=== PATIENT | female | born 1980 | race African-American/Black ===

== ENCOUNTER 2017-06-06 20:36 | Emergency (ER) | payer OTHER ==
[~2017-06-06] VITALS: Ht 162.6 cm; Wt 77.1 kg
[~2017-06-06 20:36] MED LIST: AMOXICILLIN 50500 MG PO; BACTRIM DS TAB1 EACH PO; PHENERGAN 25 MG25 M1 PO; ZOFRAN ODT4 MG PO
[2017-06-06 20:58] LABS: URINE BILIRUBIN NEGATIVE (Negative); URINE BLOOD NEGATIVE (Negative); URINE CLARITY CLEAR; URINE COLOR YELLOW; URINE GLUCOSE-RANDOM* NEGATIVE (Negative); URINE KETONES NEGATIVE (Negative); URINE LEUKOCYTES-REFLEX NEGATIVE (Negative); URINE NITRITE-REFLEX NEGATIVE (Negative); URINE PROTEIN (DIPSTICK) NEGATIVE (Negative); URINE UROBILINOGEN 0.2 E.U./dl (0.2-1.0)
[2017-06-06 23:15] LABS: ABSOLUTE NEUTROPHILS 2.4 thou/uL (1.4-8.2); BASOPHILS 1.3 % (0.0-2.0); EOSINOPHILS 2.6 % (0.0-3.0); HEMOGLOBIN 11.6 gm/dL (12.0-15.0); LYMPHOCYTES 52.2 % (24.0-44.0); MCH 30.2 pg (26.0-34.0); MCHC 33.2 g/dL (28.0-37.0); MONOCYTES 9.3 % (1.0-8.0); PLATELET COUNT 226 thou/uL (150-400); POLYS 34.6 % (36.0-66.0); RBC 3.85 mil/uL (4.20-5.00); RDW 14.1 % (10.5-14.5); WBC 6.8 thou/uL (4.0-11.0)
[2017-06-06 23:18] LABS: CALCIUM 9.2 mg/dL (8.5-10.1); CREATININE 0.8 mg/dL (0.6-1.0); POTASSIUM 3.4 mmol/L (3.5-5.1)
[2017-06-06] MEDS ORDERED: MOBIC15 MG PO (23:23)
[2017-09-27] MEDS ORDERED: IBUPROFEN 600600 M1 PO ×2 (20:17→20:59)
[2017-09-27] MEDS ORDERED: NORCO 5-325 TA1 EACH PO ×2 (20:17→20:59)
== END 2017-06-06 23:39 | disposition home or self-care (01) ==
LOC: ER 20:36
PROVIDERS: Physician Assistant
DX: R10.2 Pelvic and perineal pain (principal); F17.210 Nicotine dependence, cigarettes, uncomplicated; Z98.890 Other specified postprocedural states

== ENCOUNTER 2018-01-11 13:06 | Emergency (ER) | payer OTHER ==
[~2018-01-11] VITALS: Ht 162.6 cm; Wt 74.8 kg
[~2018-01-11 13:06] MED LIST changes: +IBUPROFEN 600600 M1 PO; +MOBIC15 MG PO; +NORCO 5-325 TA1 EACH PO
[2018-01-11 18:27] VITALS: BP 129/84
== END 2018-01-11 16:30 | disposition home or self-care (01) ==
LOC: ER 13:06
DX: K59.00 Constipation, unspecified (principal); F17.210 Nicotine dependence, cigarettes, uncomplicated; Z90.49 Acquired absence of other specified parts of digestive tract

== ENCOUNTER 2018-11-19 22:04 | Emergency (ER) | payer OTHER ==
[~2018-11-19] VITALS: Ht 162.6 cm; Wt 77.1 kg
[2018-11-20] MEDS ORDERED: BACTRIM DS TAB1 EACH PO (01:21)
[2018-11-20] MEDS ORDERED: NORCO 5-325 TA1 EAC1 PO (01:21)
[2018-11-20 01:45] VITALS: BP 153/91
== END 2018-11-20 01:46 | disposition home or self-care (01) ==
LOC: ER 22:04
DX: L02.411 Cutaneous abscess of right axilla (principal); F17.210 Nicotine dependence, cigarettes, uncomplicated; Z90.49 Acquired absence of other specified parts of digestive tract

== ENCOUNTER 2018-11-24 11:00 | Emergency (ER) | payer OTHER ==
[~2018-11-24] VITALS: Ht 162.6 cm; Wt 77.1 kg
[~2018-11-24 11:00] MED LIST changes: +NORCO 5-325 TA1 EAC1 PO
[2018-11-24 16:08] LABS: HEMATOCRIT 38.3 % (37.0-47.0); HEMOGLOBIN 12.8 gm/dL (12.0-15.0); MCH 30.4 pg (26.0-34.0); MCHC 33.4 g/dL (28.0-37.0); MCV 90.8 fL (80.0-100.0); PLATELET COUNT 217 thou/uL (150-400); RBC 4.21 mil/uL (4.20-5.00); RDW 13.7 % (10.5-14.5); WBC 3.4 thou/uL (4.0-11.0)
[2018-11-24 16:11] LABS: URINE BLOOD NEGATIVE (Negative); URINE CLARITY CLEAR; URINE COLOR YELLOW; URINE GLUCOSE-RANDOM* NEGATIVE (Negative); URINE KETONES TRACE (Negative); URINE LEUKOCYTES-REFLEX NEGATIVE (Negative); URINE NITRITE-REFLEX NEGATIVE (Negative); URINE PROTEIN (DIPSTICK) TRACE (Negative); URINE SPECIFIC GRAVITY >= 1.030 (1.005-1.035)
[2018-11-24 16:14] LABS: ICTOTEST (BILI CONFIRMATORY) Negative (Negative); URINE BILIRUBIN NEGATIVE (Negative)
[2018-11-24 16:16] LABS: ANION GAP 7 mmol/L (7-16); BUN 5 mg/dL (7-18); CALCIUM 9.5 mg/dL (8.5-10.1); CHLORIDE 99 mmol/L (98-107); CO2 24 mmol/L (21-32); GLUCOSE 74 mg/dL (74-106); POTASSIUM 3.5 mmol/L (3.5-5.1); SODIUM 130 mmol/L (136-145)
[2018-11-24 16:22] LABS: DIRECT BILIRUBIN < 0.1 mg/dL (<0.1-0.3); LIPASE 131 U/L (73-393); SGOT 25 U/L (15-37); SGPT 27 U/L (30-65); TOTAL BILIRUBIN 0.2 mg/dL (<0.1-1.0); TOTAL PROTEIN 8.5 g/dL (6.4-8.2)
[2018-11-24 18:48] VITALS: BP 127/57
== END 2018-11-24 19:10 | disposition home or self-care (01) ==
LOC: ER 11:00
PROVIDERS: Emergency Medicine
DX: M79.18 Myalgia, other site (principal); R06.02 Shortness of breath; F17.210 Nicotine dependence, cigarettes, uncomplicated; Z90.49 Acquired absence of other specified parts of digestive tract; Z98.51 Tubal ligation status

== ENCOUNTER 2021-04-09 05:45 | Emergency (ER) | payer BC, OTHER ==
[~2021-04-09] VITALS: Ht 162.6 cm; Wt 72.6 kg
[2021-04-09] MEDS ORDERED: PREPARATION H R28 GM TOP (06:57)
[2021-04-09] MEDS ORDERED: NORCO5 PO (06:57)
[2021-04-09] MEDS ORDERED: MIRALAX17 G1 PO (06:57)
[2021-04-09 07:14] VITALS: BP 118/78
[2021-04-11] MEDS ORDERED: AMLODIPINE-BEN1 EAC2 PO (16:20)
[2021-04-12] MEDS ORDERED: NORCO5 PO (10:42)
== END 2021-04-09 07:15 | disposition home or self-care (01) ==
LOC: ER 05:45
DX: K64.5 Perianal venous thrombosis (principal); R10.2 Pelvic and perineal pain; F17.210 Nicotine dependence, cigarettes, uncomplicated; Z90.49 Acquired absence of other specified parts of digestive tract; Z79.899 Other long term (current) drug therapy; Z79.891 Long term (current) use of opiate analgesic

== ENCOUNTER → 2021-04-12 | Day surgery (SDC) | payer BC, OTHER ==
[~2021-04-12] VITALS: Ht 165.1 cm; Wt 69.4 kg
[~2021-04-12] MED LIST changes: +AMLODIPINE-BEN1 EAC2 PO; +MIRALAX17 G1 PO; +NORCO5 PO; +PREPARATION H R28 GM TOP
[2021-04-12 08:46] VITALS: BP 149/95
[2021-04-12 11:11] VITALS: BP 149/95
--- NOTE | 2021-04-15 17:06 | PATH ---
[facility] [address] [place] [address] PATHOLOGY RPT PROCEDURE Name: MOLLY JACOME Room #: REG [facility] [place].R.#: [id number] Admission: 04/12/21 Date of : 76 Discharge: Report #: [id number] Path Case #: [id number] [facility] Accession Number: [id number] . 01 Material submitted: . hemorrhoids - HEMORRHOID . 01 Clinical history: . THROMBOSED HEMORRHOID . 01 Diagnosis: Squamous mucosa and submucosa "hemorrhoid", hemorrhoidectomy: - Acute ulceration with acute inflammatory exudate and underlying congested vessels focally thrombosed consistent with hemorrhoid. (SHA/db; 04/15/2021) LBQ 04/15/2021 1229 Local . 01 Electronically signed: . Bernabe Starkey MD, Pathologist NPI- [id number] . 01 Gross description: . Fixative: Formalin Labeled: Hemorrhoid Specimen received: Single segment of epithelial covered tissue Dimensions: 2.3 x 1.6 x 1.6 cm Cut surface: [place] to moderately vascularized [employer] sections submitted in cassette A1. (CAA; 04/13/2021) QA/QA 04/13/2021 0935 Local . 01 Pathologist provided ICD-10: K64.9 . 01 CPT . 157273 Specimen Comment: A courtesy copy of this report has been sent to [phone] Specimen Comment: Report sent to Performed at: [facility] [address] [place] [address] [address], [place], [place] [id number] MD Bernabe Starkey MD Phone: [phone]
--- NOTE | 2021-04-18 12:27 | O ---
[facility] [place] [address] OPERATIVE REPORT Name: MOLLY JACOME Room #: [place] [facility].#: [id number] Admission: 04/12/21 Attend Phys: Henri Watson, Discharge: Date of : 76 Report #: [id number] THIS REPORT FOR: cc: FAM - No family physician/PCP FAM - No family physician/PCP Henri Watson MD ~ DATE OF SERVICE: 04/12/2021 PREOPERATIVE DIAGNOSIS: Thrombosed external hemorrhoid. POSTOPERATIVE DIAGNOSIS: Thrombosed external hemorrhoid. OPERATION: Hemorrhoidectomy, single column, internal and external. SURGEON: Henri Watson MD ANESTHESIA: General. ESTIMATED BLOOD LOSS: Minimal. SPECIMENS: Hemorrhoid. DESCRIPTION OF PROCEDURE: After informed consent was obtained, the patient was brought to the operating room and placed supine. SCDs were placed and working, preoperative antibiotics were administered, general anesthesia was induced. The patient was placed in the dorsal lithotomy position. Digital rectal exam was performed. This did not demonstrate any masses except for some small internal hemorrhoids. She had a thrombosed external hemorrhoid on the right side. This had been more than 4 days ago and therefore it was somewhat hardened. Therefore, I grasped the external hemorrhoid and ligated the base using the LigaSure device. This did extend into a small internal hemorrhoid and that was excised as well. There was good hemostasis. The area was then packed with Gelfoam. Sterile dressings were applied. COMPLICATIONS: None. DISPOSITION: The patient was taken to recovery in satisfactory condition. <ELECTRONICALLY SIGNED> By: Henri Watson MD 04/18/21 1227 1141 1151 Henri Watson MD /nt
== END | disposition home or self-care (01) ==
LOC: OR 07:33 → EDSTATUS 15:31 → OR 15:49
PROVIDERS: ATTEND Surgery
DX: K64.5 Perianal venous thrombosis (principal); K62.89 Other specified diseases of anus and rectum; F17.210 Nicotine dependence, cigarettes, uncomplicated; Z98.890 Other specified postprocedural states; Z79.899 Other long term (current) drug therapy; Z90.710 Acquired absence of both cervix and uterus; Z90.49 Acquired absence of other specified parts of digestive tract
CPT/HCPCS: 50010; 50101; 50386; 52190; 62110; 62900; 70005

== ENCOUNTER 2021-04-20 14:49 | Emergency (ER) | payer BC, OTHER ==
[~2021-04-20] VITALS: Ht 162.6 cm; Wt 68.0 kg
[2021-04-20 17:00] VITALS: BP 143/84
== END 2021-04-20 17:00 | disposition home or self-care (01) ==
LOC: ER 14:49
DX: K59.00 Constipation, unspecified (principal); F17.210 Nicotine dependence, cigarettes, uncomplicated; Z90.49 Acquired absence of other specified parts of digestive tract; Z98.51 Tubal ligation status; Z79.891 Long term (current) use of opiate analgesic; Z79.899 Other long term (current) drug therapy; Z79.1 Long term (current) use of non-steroidal anti-inflammatories (NSAID)